=== PATIENT | female | born 1960 | race Caucasian/White ===

== ENCOUNTER 2018-10-17 11:45 | Inpatient (IN) | payer MEDICARE, MEDICAID ==
[2018-10-17] MEDS ORDERED: Acetaminophen 325 MG TAB PO PRN (15:40)
[2018-10-17] MEDS ORDERED: traMADol HCl 50 MG TAB PO PRN (15:41)
[2018-10-17] MEDS ORDERED: Ondansetron PF 4 MG/2 ML Vial SLOW IVP PRN (15:42)
[2018-10-17 15:52] VITALS: BMI 28.5
[2018-10-17] MEDS: Sodium Chloride 0.9% 1,000 ML IV SCH (16:04)
[2018-10-17] MEDS: HYDROcodone/Acetaminophen 5/325 mg Tablet PO PRN ×2 (16:08→21:43)
[2018-10-17 16:24] LABS: #Basophils 0.1 thou/uL (0.0-0.2); #Eosinphils 0.2 thou/uL (0.0-0.7); #Lymphocytes 1.3 thou/uL (1.20-3.40); #Monocytes 0.9 thou/uL (0.11-0.59); #Neutrophils 4.8 thou/uL (1.40-6.50); %Basophils 0.9 % (0.0-1.0); %Eosinophils 2.5 % (0.0-10.0); %Lymphocytes 18.4 % (21.0-51.0); %Monocytes 11.7 % (0.0-10.0); %Neutrophils 66.5 % (42.0-75.0); Hemoglobin 11.9 g/dL (12.0-16.0); Mean Corpuscular HGB CONC 32.7 g/dL (32.0-36.0); Mean Corpuscular Volume 79.4 fL (78.0-98.0); Mean Platelet Volume 8.6 fL (7.4-10.4); Platelet Count 180 thou/uL (130-400); RBC Distribution Width 14.9 % (11.5-14.5); Red Blood Cell (RBC) Count 4.57 mill/uL (4.20-5.40); White Blood Cell (WBC) Count 7.3 thou/uL (4.8-10.8)
[2018-10-17 16:30] LABS: INR-International Normal Ratio 1.1; Prothrombin Time 13.7 SEC (12.0-14.7)
[2018-10-17 16:41] LABS: Anion Gap 12 mmol/L (10-20); BUN (Urea Nitrogen) 17 mg/dL (9.8-20.1); Calc. Creatinine Clearance 67 mL/min (70-130); Calcium 9.2 mg/dL (7.8-10.44); Carbon Dioxide 22 mmol/L (22-29); Chloride 109 mmol/L (98-107); Estimated GFR-MDRD 58; Glucose 75 mg/dL (70-105); Potassium 4.1 mmol/L (3.5-5.1); Sodium 139 mmol/L (136-145)
--- NOTE | 2018-10-17 16:56 | CT ---
CT OF THE THORACIC SPINE WITHOUT CONTRAST: 10/17/18 INDICATION: Thoracic spinal cord tumor. COMPARISON: None. TECHNIQUE: Multiple CT images were obtained of the thoracic spine without IV or intrathecal contrast. FINDINGS: There is mild multilevel disc degenerative disease of the thoracic spine. No definite acute fracture or subluxation is evident. Within the right T10-T11 neural foramina there is a soft tissue density expanding the right neural fo ramina suspicious for a nerve sheath tumor. This is best seen on image 64 of series 2 and image 32 of the sagittal series. The soft tissue density lesion measures approximately 1.1 x 1.1 cm. No addition al focal lesion is evident. There is a small hiatal hernia. There is postsurgical change from the prior gastric bypass. There are calcified granuloma within both lungs. The visualized adrenal glands appear within normal limits. IMPRESSION: 1. 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 MR of the thoracic spine with a nd without contrast recommended for further evaluation. 2. Mild multilevel spondylosis of the thoracic spine. POS: TPC
--- NOTE | 2018-10-17 17:00 | CT ---
NONCONTRAST CT OF THE LUMBAR SPINE: 10/17/18 INDICATION: History of spinal mass at the T10 vertebral level. COMPARISON: None. FINDINGS: Within the visualized retroperitoneum, there is postsurgical change of a left nephrectomy and cholecy stectomy. There are scattered vascular calcifications along the abdominal aorta. There is multilevel disc degenerative facet osteoarthritic change. There is diffuse osteopenia. At L5-S1, there is no appreciable osseous central canal or neural foraminal narrowing. At L4-5, there is no appreciable osseous central canal or neural foraminal narrowing. At L3-4, there is no appreciable osseous central canal or neural foraminal narrowing. At L2-3, there is no appreciable osseous central canal or neural foraminal narrowing. At L1-2, there is no appreciable osseous central canal or neural foraminal narrowing. At T12-L1, there is no appreciable osseous central canal or neural foraminal narrowing. IMPRESSION: 1. Mild multilevel spondylosis of the lumbar spine. 2. No definite visible soft tissue mass is evident within the limitations of this noncontrast CT examination. If there remains further clinical concern for spinal pathology, further evaluation with MRI of the lumbar spine with and without contrast recommended. POS: TPC
[2018-10-17] MEDS: Dexamethasone 4 mg/ml Vial SLOW IVP SCH ×2 (17:01→23:07)
[2018-10-17] MEDS: Gabapentin 300 MG CAP PO SCH (19:56)
--- NOTE | 2018-10-17 19:57 | CON ---
DATE OF CONSULTATION: 10/17/2018 PRIMARY CARE PHYSICIAN: Dr. Anthony Lawrence at [facility]. REASON FOR CONSULTATION: Medical management. 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 Hospitalist Team was consulted for medical management. She denies any chest pain, shortness of breath, palpitations, lightheadedness, dizziness, or syncope. She denies any exertional shortness of breath prior to the onset of bilateral lower extremity sensory and motor deficits. She has a history of murmur over the last 7 to 8 years; however, she never had an echo in the past. She had a negative stress test in the last 3 to 4 years at [facility]. She denies any history of diabetes, CVA, hypertension, or congestive heart failure. PAST MEDICAL HISTORY: 1. Pericardiac murmur was noticed around 6 to 7 years ago. 2. Depression. 3. History of renal cell cancer, status post surgery at [facility]. 4. History of abnormal Pap smear. PAST SURGICAL HISTORY: 1. Cholecystectomy in 2009. 2. Gastric bypass in 2011. 3. Left renal cell cancer surgery in 2013, with subsequent nephrectomy in 2015. ALLERGIES: THE PATIENT DENIES ANY DRUG ALLERGIES. CURRENT HOME MEDICATIONS: 1. Tylenol No. 3 as needed. 2. Gabapentin 300 mg b.i.d. 3. Effexor 75 mg daily. SOCIAL HISTORY: The patient currently lives at home with her family. Prior to onset of bilateral lower extremity weakness, she was independent of activities of daily living. She denies any history of smoking, alcohol, or drug use. FAMILY HISTORY: Mother with congestive heart failure and diabetes. One brother with pancreatic cancer. REVIEW OF SYSTEMS: All other review of systems was reviewed and was found negative. PHYSICAL EXAMINATION: VITAL SIGNS: Temperature 98.3, pulse rate of 95, respirations of 18, blood pressure 144/89, O2 saturation 97% on room air. GENERAL: A 58-year-old female, in no apparent distress. HEENT: Head, atraumatic and normocephalic. Sclerae are anicteric. Moist mucous membranes. No oral lesion. NECK: Supple. No JVD appreciated. No carotid bruit. LUNGS: Clear to auscultation bilaterally. No wheezing, rales, or rhonchi. HEART: S1 and S2 present. Regular rate and rhythm. 2/6 systolic murmur over the aortic area as well as at the mitral area. No heaves or pulsation. ABDOMEN: Soft and nontender. Bowel sounds present. No rebound or guarding. EXTREMITIES: No edema or calf tenderness. NEUROLOGIC: Bilateral lower extremity sensory deficit from upper abdomen down. PSYCHIATRIC: Normal affect. The patient is alert, awake, and oriented x3. SKIN: Warm and dry. LYMPH NODES: No palpable lymph nodes in the neck. PERIPHERAL VASCULAR: Radial pulses palpable bilaterally. MUSCULOSKELETAL: No joint swelling or tenderness. LABORATORY FINDINGS: WBC 7.3 with hemoglobin 11.9, hematocrit 36.2, platelet of 180. PT, INR, and PTT in normal range. Chemistry showed sodium 139, potassium 4.1, chloride 109, bicarb 22, BUN 17, creatinine 0.98, glucose of 75. Thoracic spine and lumbar spine CT showed a mass at the T10-T11 neural foramina. EKG by my review showed sinus rhythm without significant ST-T wave changes. IMPRESSION: 1. T10-T11 mass with severe spinal stenosis. 2. Depression, mild, stable. 3. History of murmur. 4. Chronic anemia. 5. Chronic kidney disease, stage 3. 6. Chronic pain syndrome. 7. Neuropathy. PLAN: The patient is currently admitted on the surgical floor. She has been started on IV steroids. She denies any history of coronary artery disease; congestive heart failure; diabetes mellitus, type 2; hypertension; or stroke in the past. She had a stress test in the last 4 to 5 years, which was negative. She denies any history of complications from anesthesia. She has a long history of murmur, however, never had an echo in the past. Murmur is probably not consistent with severe valvular heart disease. She is probably optimal for surgical intervention. Thank you Dr. Mayo for this consultation. We will follow with you. Job ID: [id number]
[2018-10-17] MEDS: tiZANidine HCl 4 MG TAB PO PRN (21:43)
[2018-10-18] MEDS: Morphine 2 MG/ML SYRINGE SLOW IVP PRN ×4 (02:41→20:30)
[2018-10-18] MEDS: Dexamethasone 4 mg/ml Vial SLOW IVP SCH ×4 (05:53→23:30)
[2018-10-18] MEDS ORDERED: Thrombin 5000 UNITS/5 ML VIAL ONE (06:41)
[2018-10-18] MEDS ORDERED: Sodium Chloride 0.9% 10 ML ONE (06:41)
[2018-10-18] MEDS ORDERED: Midazolam HCl 2 mg/2 ml Vial ONE (06:45)
[2018-10-18] MEDS ORDERED: Fentanyl 100 MCG/2 ML VIAL ONE ×2 (06:45→12:31)
[2018-10-18] MEDS ORDERED: HYDROmorphone 2 MG/ML VIAL ONE (07:13)
[2018-10-18] MEDS ORDERED: Promethazine HCl 25 MG/ML VIAL SLOW IVP PRN (11:57)
[2018-10-18] MEDS ORDERED: Promethazine HCl 25 MG/ML VIAL IM PRN (11:57)
[2018-10-18] MEDS ORDERED: Ondansetron HCl/PF 4 MG/2 ML Vial IVP PRN (11:57)
[2018-10-18] MEDS ORDERED: Ondansetron PF 4 MG/2 ML Vial ONE (12:46)
[2018-10-18] MEDS ORDERED: PHENYLEPHRINE-NS 100 MCG/ML 10 ML SYRINGE ONE (12:46)
[2018-10-18] MEDS ORDERED: Succinylcholine Chloride 20 MG/ML 10 ml SYRINGE FS ONE (12:46)
[2018-10-18] MEDS ORDERED: Glycopyrrolate 0.2 MG/ML 5 ML SYRINGE ONE (12:46)
[2018-10-18] MEDS ORDERED: Labetalol HCl 100 MG/20 ML VIAL ONE (12:46)
[2018-10-18] MEDS ORDERED: Rocuronium Bromide 10 MG/ML (10ML VIAL) ONE (12:46)
[2018-10-18] MEDS ORDERED: PROPOFOL 200 MG/20 ML VIAL ONE (12:46)
[2018-10-18] MEDS ORDERED: Lidocaine 1% PF 5 ML VIAL ONE (12:46)
[2018-10-18] MEDS: Gabapentin 300 MG CAP PO SCH ×2 (13:29→20:30)
[2018-10-18] MEDS: Multivit, Therapeutic 1 TAB PO SCH (13:29)
[2018-10-18] MEDS: Pantoprazole 40 MG VIAL IVP SCH (13:30)
[2018-10-18] MEDS: CEFAZOLIN 2 GM in Premix Bag 1 BAG IVPB SCH ×2 (13:59→22:07)
[2018-10-18] MEDS: HYDROcodone/Acetaminophen 5/325 mg Tablet PO PRN ×2 (16:07→22:06)
--- NOTE | 2018-10-18 17:31 | EKG ---
Test Reason : Blood Pressure : / mmHG Vent. Rate : 074 BPM Atrial Rate : 074 BPM P-R Int : 156 ms QRS Dur : 090 ms QT Int : 390 ms P-R-T Axes : 051 061 047 degrees QTc Int : 432 ms Normal sinus rhythm Normal ECG Confirmed by FAUSTO CALIX ([id number]) on 10/18/2018 5:31:34 PM Referred By: LAZARA Confirmed By:FAUSTO CALIX
[2018-10-18] MEDS: Sodium Chloride 0.9% 1,000 ML IV SCH ×2 (17:33→17:37)
--- NOTE | 2018-10-18 17:56 | PDOC.HOSPP ---
- Subjective Encounter Date: 10/18/18 Encounter Time: 15:40 Subjective: Patient seen and examined for med mngt. Pain controlled. No CP/SOB or palpitations. No new complaints. No overnight events - Objective Vital Signs & Weight: Weight Weight 151 lb I&O: 10/17/18 10/18/18 10/19/18 06:59 06:59 06:59 Intake Total 575 Balance 575 Result Diagrams: 10/17/18 16:17 10/17/18 16:17 EKG Reviewed by me: Yes (SR) Hospitalist ROS - Review of Systems Respiratory: denies: cough, dry, shortness of breath, hemoptysis, SOB with excertion, pleuritic pain, sputum, wheezing, other Cardiovascular: denies: chest pain, palpitations, orthopnea, paroxysmal noc. dyspnea, edema, light headedness, other Gastrointestinal: denies: nausea, vomitting, abdominal pain, diarrhea, constipation, melena, hematochezia, other - Medication Medications: Active Medications Generic Name Dose Route Start Last Admin Trade Name Freq PRN Reason Stop Dose Admin Hydrocodone Bitart/Acetaminophen 1 tab 10/17/18 15:41 10/18/18 16:07 [place] 5/325 PO 1 tab Q6H PRN Administration Moderate Pain (4-6) Dexamethasone 4 mg 10/17/18 18:00 10/18/18 17:37 Decadron SLOW IVP 4 mg Q6HR GILDA Administration Gabapentin 300 mg 10/17/18 21:00 10/18/18 13:29 Neurontin PO Not Given BID GILDA Sodium Chloride 1,000 mls @ 50 mls/hr 10/17/18 15:45 10/18/18 17:37 Normal Saline 0.9% IV 1,000 mls .Q20H GILDA Administration Cefazolin Sodium/Dextrose 2 gm 50 mls @ 100 mls/hr 10/18/18 14:00 10/18/18 13 :59 / Device IVPB 10/20/18 06:29 50 mls Q8HR GILDA Administration Morphine Sulfate 2 mg 10/17/18 15:41 10/18/18 17:42 Morphine SLOW IVP 2 mg Q1H PRN Administration Severe Pain (7-10) Multivitamins 1 tab 10/18/18 09:00 10/18/18 13:29 Theragran PO Not Given DAILY GILDA Pantoprazole Sodium 40 mg 10/18/18 09:00 10/18/18 13:30 Protonix IVP Not Given DAILY [facility] Tizanidine HCl 4 mg 10/17/18 15:42 10/17/18 21:43 Zanaflex PO 4 mg Q8H PRN Administration Muscle Spasm Venlafaxine HCl 75 mg 10/18/18 09:00 10/18/18 17:33 Effexor PO Not Given DAILY GILDA - Exam General Appearance: NAD Neck: supple, no JVD Heart: RRR, no murmur, no gallops, no rubs Respiratory: CTAB, no wheezes, no rales, no ronchi Gastrointestinal: soft, non-tender, non-distended, normal bowel sounds Extremities: no edema Hosp A/P - Plan plan discussed w/ family, stinson catheter, incentive spirometry, DVT proph w/SCDs , GI proph IMPRESSION: 1. T10-T11 mass with severe spinal stenosis. 2. Depression, mild, stable. 3. History of murmur. 4. Chronic anemia. 5. Chronic kidney disease, stage 3. 6. Chronic pain syndrome. 7. Neuropathy. PLAN: Echo as outpt On IV Steroids with PPI Cont to monitor Cont Gabapentin and Effexor
[2018-10-18] MEDS: tiZANidine HCl 4 MG TAB PO PRN (22:06)
[2018-10-19] MEDS: HYDROcodone/Acetaminophen 5/325 mg Tablet PO PRN ×4 (03:59→22:43)
[2018-10-19] MEDS: Morphine 2 MG/ML SYRINGE SLOW IVP PRN ×5 (04:07→20:50)
[2018-10-19] MEDS: Dexamethasone 4 mg/ml Vial SLOW IVP SCH (05:57)
[2018-10-19] MEDS: CEFAZOLIN 2 GM in Premix Bag 1 BAG IVPB SCH ×3 (05:57→22:37)
[2018-10-19] MEDS: tiZANidine HCl 4 MG TAB PO PRN ×3 (06:02→22:43)
--- NOTE | 2018-10-19 08:01 | OP ---
DATE OF PROCEDURE: 10/18/2018 LOCATION: OR 11. WOUND CLASSIFICATION: Type 1 wound. 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 PROCEDURES PERFORMED: 1. T9, T10, top of T11 laminectomy, partial facetectomy, foraminotomy with facetectomy on the right T10-T11 segment, given extension of tumor out to neural foramen. 2. Opening of dura with intradural extramedullary tumor resection with resection from right T10 neural foramen. 3. Use of operative microscope for microdissection. DESCRIPTION OF PROCEDURE: After informed consent was obtained from the patient, the patient was brought to the OR. Proper patient, pause, and identification were carried out. She was placed under excellent general endotracheal anesthesia and positioned prone on the OR table. All appropriate points were padded. We identified the T9, T10, T11 segments and a linear heather was made dorsally in this region. This area was sterilely cleansed, prepared, and draped. Proper patient, pause, and identification were carried out. The wound was then opened with a combination of sharp, monopolar, and blunt dissection, and the T9, T10, T11 segments were exposed. Localization film confirmed our area of interest. We then performed a T9, T10, and top of T11 laminectomy with preservation of the left T9, T10, and T10-T11 facet complexes. We then did a right T10-T11 facetectomy to allow for exposure of the right T10 nerve root. This was skeletonized and exposed. We then brought the microscope in. The dura was opened in the midline and yellow, somewhat bloody, soft, but well-encapsulated mass was identified. I preserved the capsule and was able to mobilize this away from the spinal cord. Once this was done, I was able to resect the portion that was in the canal and tease out portions that had escaped into the right T10 foramen. This did appear to be connected to the T10 nerve root and the T10 nerve root had to be sacrificed. 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 Preliminary pathology was consistent with renal cell carcinoma, while highly unusual given the rarity of this, this is what our pathologist suspected based on preliminary smear. I then followed it into the neural foramen and tumor was resected. Hemostasis was maximized throughout. The wound was copiously irrigated. The cord was protected in its entirety. I then closed the dura with a running locking suture, and DuraSeal was then placed over this region with two Valsalva maneuvers, there was no evidence of CSF leak. Copious irrigation occurred throughout. The wound was then closed in anatomic layers following sprinkling of vancomycin powder. The patient was then emerged from anesthesia. Job ID: [id number]
[2018-10-19] MEDS: Multivit, Therapeutic 1 TAB PO SCH (09:24)
[2018-10-19] MEDS: Pantoprazole 40 MG VIAL IVP SCH (09:24)
[2018-10-19] MEDS: Gabapentin 300 MG CAP PO SCH ×2 (09:24→20:50)
--- NOTE | 2018-10-19 11:14 | PRG ---
DATE OF SERVICE: 10/19/2018 Ms. Perez is postoperative day 1 from a T10 intradural extramedullary tumor resection. She is moving her right lower extremity with mild motor deficit throughout the right leg, but is able to bend her knee up at the hip and wiggle her toes. She has a very minimal deficit in the left lower extremity. Overall, I am very pleased with how she is doing. We have set her up. She has no headache. We are awaiting the final pathology. Interestingly, our pathologist suspected it could be renal cell carcinoma, although this would be highly unusual to have an intradural extramedullary met, although unheard of. Nevertheless, we are doing a Decadron taper. She will need inpatient rehab. She may mobilize as tolerated. Her wound has been dry. Job ID: [id number]
[2018-10-19] MEDS: Dexamethasone 4 MG TAB PO SCH ×3 (11:49→23:44)
--- NOTE | 2018-10-19 14:38 | PDOC.HOSPP ---
- Subjective Encounter Date: 10/19/18 Encounter Time: 11:00 Subjective: Patient seen and examined for med mngt. No fever/chills or new focal deficits. Pain controlled. No new complaints. No overnight events - Objective Vital Signs & Weight: Vital Signs (12 hours) Temp Pulse Resp BP Pulse Ox 10/19/18 12:45 97.5 F L 88 18 119/79 95 10/19/18 07:43 98.2 F 66 18 105/71 97 10/19/18 04:53 98.5 F 67 16 98/62 98 Weight Weight 151 lb I&O: 10/18/18 10/19/18 10/20/18 06:59 06:59 06:59 Intake Total 575 360 Balance 575 360 Result Diagrams: 10/17/18 16:17 10/17/18 16:17 Hospitalist ROS - Review of Systems Cardiovascular: denies: chest pain, palpitations, orthopnea, paroxysmal noc. dyspnea, edema, light headedness, other Gastrointestinal: denies: nausea, vomitting, abdominal pain, diarrhea, constipation, melena, hematochezia, other - Medication Medications: Active Medications Generic Name Dose Route Start Last Admin Trade Name Freq PRN Reason Stop Dose Admin Hydrocodone Bitart/Acetaminophen 1 tab 10/17/18 15:41 10/19/18 09:32 [place] 5/325 PO 1 tab Q6H PRN Administration Moderate Pain (4-6) Dexamethasone 4 mg 10/19/18 12:00 10/19/18 11:49 Decadron PO 10/21/18 06:01 4 mg Q6HR GILDA Administration Gabapentin 300 mg 10/17/18 21:00 10/19/18 09:24 Neurontin PO 300 mg BID GILDA Administration Sodium Chloride 1,000 mls @ 50 mls/hr 10/17/18 15:45 10/18/18 17:37 Normal Saline 0.9% IV 1,000 mls .Q20H GILDA Administration Cefazolin Sodium/Dextrose 2 gm 50 mls @ 100 mls/hr 10/18/18 14:00 10/19/18 14 :15 / Device IVPB 10/20/18 06:29 50 mls Q8HR GILDA Administration Morphine Sulfate 2 mg 10/17/18 15:41 10/19/18 14:18 Morphine SLOW IVP 2 mg Q1H PRN Administration Severe Pain (7-10) Multivitamins 1 tab 10/18/18 09:00 10/19/18 09:24 Theragran PO 1 tab DAILY GILDA Administration Pantoprazole Sodium 40 mg 10/18/18 09:00 10/19/18 09:24 Protonix IVP 40 mg DAILY GILDA Administration Tizanidine HCl 4 mg 10/17/18 15:42 10/19/18 14:19 Zanaflex PO 4 mg Q8H PRN Administration Muscle Spasm Venlafaxine HCl 75 mg 10/18/18 09:00 10/19/18 09:24 Effexor PO 75 mg DAILY GILDA Administration - Exam General Appearance: NAD Heart: RRR, no gallops, no rubs Respiratory: CTAB, no wheezes, no rales, no ronchi Gastrointestinal: soft, non-tender, non-distended, normal bowel sounds Extremities: no edema Hosp A/P - Plan IMPRESSION: 1. T10-T11 mass with severe spinal stenosis. Biopsy pending 2. Depression, mild, stable. 3. History of murmur. Echo as outpt 4. Chronic anemia. 5. Chronic kidney disease, stage 3. 6. Chronic pain syndrome. 7. Neuropathy of unclear etiology. PLAN: On IV Steroids with PPI Cont Gabapentin and Effexor Will follow PRN AM labs
[2018-10-19] MEDS ORDERED: Polyethylene Glycol 3350 17 GM Packet PO PRN (15:44)
[2018-10-19] MEDS: Sodium Chloride 0.9% 1,000 ML IV SCH (17:12)
[2018-10-19] MEDS: Docusate 100 MG CAP PO SCH (20:50)
[2018-10-20] MEDS: Morphine 2 MG/ML SYRINGE SLOW IVP PRN ×2 (03:49→20:04)
[2018-10-20] MEDS: HYDROcodone/Acetaminophen 5/325 mg Tablet PO PRN ×4 (04:58→21:40)
[2018-10-20] MEDS: Sodium Chloride 0.9% 1,000 ML IV SCH ×2 (05:03→14:22)
[2018-10-20] MEDS: Dexamethasone 4 MG TAB PO SCH ×4 (05:58→23:13)
[2018-10-20] MEDS: CEFAZOLIN 2 GM in Premix Bag 1 BAG IVPB SCH (05:58)
[2018-10-20] MEDS: tiZANidine HCl 4 MG TAB PO PRN ×3 (06:49→18:22)
[2018-10-20 07:03] LABS: Anion Gap 10 mmol/L (10-20); BUN (Urea Nitrogen) 11 mg/dL (9.8-20.1); Calc. Creatinine Clearance 70 mL/min (70-130); Calcium 8.2 mg/dL (7.8-10.44); Carbon Dioxide 24 mmol/L (22-29); Chloride 106 mmol/L (98-107); Estimated GFR-MDRD 61; Glucose 143 mg/dL (70-105); Potassium 4.2 mmol/L (3.5-5.1); Sodium 136 mmol/L (136-145)
--- NOTE | 2018-10-20 07:45 | PRG ---
DATE OF SERVICE: 10/20/2018 I saw Marci Perez in her hospital room this morning. She is now 2 days out from removal of an intradural extramedullary thoracic spine lesion. Her weakness and sensory alteration in her lower extremities continues to improve daily. She is very pleased with her recovery. She still needs some assistance with ambulation and could benefit from inpatient rehabilitation. We will aim for discharge to rehab on Monday. Job ID: [id number]
[2018-10-20] MEDS: Multivit, Therapeutic 1 TAB PO SCH (09:33)
[2018-10-20] MEDS: Gabapentin 300 MG CAP PO SCH ×2 (09:33→20:04)
[2018-10-20] MEDS: Pantoprazole 40 MG VIAL IVP SCH (09:34)
[2018-10-20] MEDS: Docusate 100 MG CAP PO SCH ×2 (09:34→20:04)
--- NOTE | 2018-10-20 23:20 | PDOC.HOSPP ---
- Subjective Encounter Date: 10/20/18 Encounter Time: 14:45 Subjective: Patient seen and examined for med mngt. No CP or SOB. Pain on movement. No other complaints. No overnight events - Objective Vital Signs & Weight: Vital Signs (12 hours) Temp Pulse Resp BP Pulse Ox 10/20/18 20:00 98.2 F 66 16 107/70 95 10/20/18 15:24 98.4 F 69 16 105/66 96 10/20/18 11:37 98.1 F 70 14 118/75 95 Weight Weight 151 lb I&O: 10/19/18 10/20/18 10/21/18 06:59 06:59 06:59 Intake Total 3100 1660 Output Total 2750 1950 Balance 350 -290 Result Diagrams: 10/17/18 16:17 10/20/18 06:30 Hospitalist ROS - Review of Systems Respiratory: denies: cough, dry, shortness of breath, hemoptysis, SOB with excertion, pleuritic pain, sputum, wheezing, other Cardiovascular: denies: chest pain, palpitations, orthopnea, paroxysmal noc. dyspnea, edema, light headedness, other - Medication Medications: Active Medications Generic Name Dose Route Start Last Admin Trade Name Freq PRN Reason Stop Dose Admin Hydrocodone Bitart/Acetaminophen 1 tab 10/20/18 08:06 10/20/18 21:40 [place] 5/325 PO 1 tab Q4H PRN Administration Moderate Pain (4-6) Dexamethasone 4 mg 10/19/18 12:00 10/20/18 23:13 Decadron PO 10/21/18 06:01 4 mg Q6HR GILDA Administration Docusate Sodium 100 mg 10/19/18 21:00 10/20/18 20:04 Colace PO 100 mg BID GILDA Administration Gabapentin 300 mg 10/17/18 21:00 10/20/18 20:04 Neurontin PO 300 mg BID GILDA Administration Sodium Chloride 1,000 mls @ 50 mls/hr 10/17/18 15:45 10/20/18 14:22 Normal Saline 0.9% IV 1,000 mls .Q20H GILDA Administration Morphine Sulfate 2 mg 10/17/18 15:41 10/20/18 20:04 Morphine SLOW IVP 2 mg Q1H PRN Administration Severe Pain (7-10) Multivitamins 1 tab 10/18/18 09:00 10/20/18 09:33 Theragran PO 1 tab DAILY GILDA Administration Pantoprazole Sodium 40 mg 10/18/18 09:00 10/20/18 09:34 Protonix IVP 40 mg DAILY GILDA Administration Sodium Chloride 10 ml 10/20/18 09:00 10/20/18 20:07 Flush - Normal Saline IVF Not Given Q12HR GILDA Tizanidine HCl 4 mg 10/20/18 08:06 10/20/18 18:22 Zanaflex PO 4 mg Q6H PRN Administration Muscle Spasm Venlafaxine HCl 75 mg 10/18/18 09:00 10/20/18 09:33 Effexor PO 75 mg DAILY GILDA Administration - Exam General Appearance: NAD Neck: supple, no JVD Heart: RRR, no gallops Respiratory: CTAB, no wheezes, no rales Gastrointestinal: soft, non-tender, non-distended, normal bowel sounds Extremities: no edema Hosp A/P - Plan plan discussed w/ family IMPRESSION: 1. T10-T11 mass with severe spinal stenosis. 2. Depression, mild, stable. 3. History of murmur. Echo as outpt 4. Chronic anemia. 5. Chronic kidney disease, stage 3. 6. Chronic pain syndrome. 7. Neuropathy of unclear etiology. PLAN: On IV Steroids with PPI Cont other meds as above Biopsy - ?Metastatic renal Ca
[2018-10-21] MEDS: HYDROcodone/Acetaminophen 5/325 mg Tablet PO PRN ×3 (04:05→17:37)
[2018-10-21] MEDS: Sodium Chloride 0.9% 1,000 ML IV SCH (04:06)
[2018-10-21] MEDS: tiZANidine HCl 4 MG TAB PO PRN ×3 (04:06→20:48)
[2018-10-21] MEDS: Dexamethasone 4 MG TAB PO SCH (05:10)
--- NOTE | 2018-10-21 08:44 | PRG ---
DATE OF SERVICE: 10/21/2018 I saw Ms. Perez in her hospital room this morning. She is doing relatively well. She could not make a walk around the nurses station, but she could get to the bathroom yesterday with some assistance. She made it to the paiz, but that was the extent of her walking. She feels her legs are getting stronger and it is a sensory alteration in the lower extremities are improving. Overnight, her vitals have been stable and her neurological examination is as well. The disposition for her will be to inpatient rehabilitation. She is told yesterday by Case Management that her insurance may require her to stay through Monday before the transfer can happen. Job ID: [id number]
[2018-10-21] MEDS: Multivit, Therapeutic 1 TAB PO SCH (08:58)
[2018-10-21] MEDS: Gabapentin 300 MG CAP PO SCH ×2 (08:58→20:34)
[2018-10-21] MEDS: Pantoprazole 40 MG VIAL IVP SCH (08:59)
[2018-10-21] MEDS: Docusate 100 MG CAP PO SCH (09:04)
[2018-10-21] MEDS: Dexamethasone 1 MG TAB PO SCH ×2 (12:19→17:37)
[2018-10-21] MEDS: Morphine 2 MG/ML SYRINGE SLOW IVP PRN ×2 (16:39→20:40)
--- NOTE | 2018-10-21 17:38 | PDOC.HOSPP ---
- Subjective Encounter Date: 10/21/18 Encounter Time: 15:30 Subjective: Patient seen and examined for med mngt. Pain controlled. No new complaints. No overnight events - Objective Vital Signs & Weight: Vital Signs (12 hours) Temp Pulse Resp BP Pulse Ox 10/21/18 15:01 98 F 62 16 110/72 95 10/21/18 12:15 98.1 F 70 16 124/84 96 10/21/18 08:09 98.6 F 75 16 123/79 96 Weight Weight 151 lb I&O: 10/20/18 10/21/18 10/22/18 06:59 06:59 06:59 Intake Total 3100 1660 2060 Output Total 2750 1950 1900 Balance 350 -290 160 Result Diagrams: 10/17/18 16:17 10/20/18 06:30 Hospitalist ROS - Review of Systems Respiratory: denies: cough, dry, shortness of breath, hemoptysis, SOB with excertion, pleuritic pain, sputum, wheezing, other Cardiovascular: denies: chest pain, palpitations, orthopnea, paroxysmal noc. dyspnea, edema, light headedness, other Gastrointestinal: denies: nausea, vomitting, abdominal pain, diarrhea, constipation, melena, hematochezia, other - Medication Medications: Active Medications Generic Name Dose Route Start Last Admin Trade Name Freq PRN Reason Stop Dose Admin Hydrocodone Bitart/Acetaminophen 1 tab 10/20/18 08:06 10/21/18 08:56 [place] 5/325 PO 1 tab Q4H PRN Administration Moderate Pain (4-6) Dexamethasone 3 mg 10/21/18 12:00 10/21/18 12:19 Decadron PO 10/23/18 06:01 3 mg Q6HR GILDA Administration Docusate Sodium 100 mg 10/19/18 21:00 10/21/18 09:04 Colace PO Not Given BID GILDA Gabapentin 300 mg 10/17/18 21:00 10/21/18 08:58 Neurontin PO 300 mg BID GILDA Administration Sodium Chloride 1,000 mls @ 50 mls/hr 10/17/18 15:45 10/21/18 04:06 Normal Saline 0.9% IV 1,000 mls .Q20H GILDA Administration Morphine Sulfate 2 mg 10/17/18 15:41 10/21/18 16:39 Morphine SLOW IVP 2 mg Q1H PRN Administration Severe Pain (7-10) Multivitamins 1 tab 10/18/18 09:00 10/21/18 08:58 Theragran PO 1 tab DAILY GILDA Administration Pantoprazole Sodium 40 mg 10/18/18 09:00 10/21/18 08:59 Protonix IVP 40 mg DAILY GILDA Administration Sodium Chloride 10 ml 10/20/18 09:00 10/21/18 09:04 Flush - Normal Saline IVF Not Given Q12HR GILDA Tizanidine HCl 4 mg 10/20/18 08:06 10/21/18 12:23 Zanaflex PO 4 mg Q6H PRN Administration Muscle Spasm Venlafaxine HCl 75 mg 10/18/18 09:00 10/21/18 08:58 Effexor PO 75 mg DAILY GILDA Administration - Exam General Appearance: NAD Neurological: no new deficit Psychiatric: normal affect, A&O x 3 Hosp A/P - Plan IMPRESSION: 1. T10-T11 mass with severe spinal stenosis. 2. Depression, mild, stable. 3. History of murmur. Echo as outpt 4. Chronic anemia. 5. Chronic kidney disease, stage 3. 6. Chronic pain syndrome. 7. Neuropathy of unclear etiology. PLAN: On IV Steroids Cont PPI DC IVF DC Oneil in AM Cont other meds as above Biopsy - ?Metastatic renal Ca
[2018-10-22] MEDS: Dexamethasone 1 MG TAB PO SCH ×4 (00:16→17:58)
[2018-10-22] MEDS: HYDROcodone/Acetaminophen 5/325 mg Tablet PO PRN ×6 (00:20→22:03)
[2018-10-22] MEDS: Multivit, Therapeutic 1 TAB PO SCH (07:49)
[2018-10-22] MEDS: Docusate 100 MG CAP PO SCH (07:49)
[2018-10-22] MEDS: tiZANidine HCl 4 MG TAB PO PRN ×3 (07:49→22:03)
[2018-10-22] MEDS: Gabapentin 300 MG CAP PO SCH ×2 (07:50→20:02)
--- NOTE | 2018-10-22 10:09 | PRG ---
DATE OF SERVICE: 10/22/2018 This is Deniz Dueñas PA-C dictating a report for Dallin Mayo MD. This is postoperative recheck. Ms. 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 Apparently, pathology is consistent with metastatic renal cell carcinoma. Therefore, some additional testing will need to be completed to ensure there are no other mets. We will order a brain MRI with and without contrast, cervical spine MRI with and without contrast, and chest, abdomen, and pelvis CT scan. We will follow up on these studies, but otherwise the patient feels as though she is doing well. She has been up walking. She states she feels slightly unsteady on her feet, but this is unchanged compared to preoperative period. She has had electric-like sensations into the bilateral lower extremities. They are not especially painful, but they are bothersome to her. She also has foul odor from her Oneil according to the patient. We will remove it and see how she does with voiding. We may likely get UA with culture if needed. Main thing now is following up on her new studies plus disposition, and we will speak with case management. In regard to her strength, she has mild weakness into the right lower extremity and multiple myotomes, but in all truth, I feel as though it is improved compared to her immediate postoperative exam. She has trace weakness through the left lower extremity. She has decreased sensation around the belly button and below, which she states is no different than what it was before surgery and in fact she feels as though maybe the right lower extremity paresthesias and sensation are improving. The patient denies any headache. Frankly, I think she is doing very well, but again we will follow up on her studies and also placement into rehab and she will continue to work with therapies, walking with a walker. Please call with any changes in the patient's neurologic status. Job ID: [id number]
[2018-10-22] MEDS ORDERED: ISOVUE-370 76%-LOCM 1 ML ONE (10:48)
[2018-10-22] MEDS ORDERED: Gadobenate Dimeglumine 529 MG/1 ML (20ML VIAL) ONE (10:54)
--- NOTE | 2018-10-22 11:59 | MRI ---
MRI CERVICAL SPINE WITH AND WITHOUT CONTRAST: HISTORY: Osseous metastases. Primary renal cell cancer. Evaluate for cervical spinal metastases. TECHNIQUE: MRI cervical spine is performed with and without intravenous gadolinium administration. Multi sequent ial, multiplanar imaging is performed. FINDINGS: Appropriate T1 marrow signal intensity of the cervical vertebra. Cervical spine vertebral body height is maintained. There is no fracture. No significant STIR hyperintensity to suggest vertebral body edema or ligamentous injury. Visualized brain parenchyma, cervicomedullary junction, cervical cord and the upper thoracic cord hav e a normal size and signal. Postcontrast images do not demonstrate any abnormal enhancement with regards to the vertebral bodies. No abnormal enhancement with regards to the spinal cord. Visualized soft tissue neck structures are grossly unremarkable. C2-C3: No significant central canal stenosis or significant neural foraminal narrowing. C3-C4: No significant central canal stenosis or significant neural foraminal narrowing. C4-C5: Minimal broad-based disc-osteophyte complex. No significant central canal stenosis or signific ant neural foraminal narrowing. C5-C6: Broad-based disc-osteophyte complex with resultant mild central canal stenosis. Mild right and [id number] left neural foraminal narrowing due to uncovertebral hypertrophy.. C6-C7: Broad-based disc-osteophyte complex minimally flattens the ventral thecal sac. No significant central canal stenosis. Right neural foramen is patent. Mild left neural foraminal narrowing due to uncovertebral hypertrophy. C7-T1: No significant central canal stenosis or significant neural foraminal narrowing. IMPRESSION: 1. No MR evidence of osseous metastases. 2. Appropriate signal intensity of the visualized brain parenchyma and spinal cord. 3. No significant central canal stenosis or significant neural foraminal narrowing. Degenerative dise ase at C4-C5, C5-C6 and C6-C7 as described above. Transcribed Date/Time: 10/22/2018 1:47 PM
--- NOTE | 2018-10-22 12:00 | MRI ---
Brain MRI with and without contrast: 10/22/2018 HISTORY: Renal cell carcinoma, tumor removal at T10-11 TECHNIQUE: Multiplanar multisequence MR imaging of the brain is obtained with and without contrast FINDINGS: The diffusion weighted imaging demonstrates no evidence for acute infarction. The axial gra dient echo imaging demonstrates no evidence for intracranial hemorrhage. There is a focal area of polypoid mucosal thickening within the maxillary sinus on the right. Arterial flow voids at the axial level of the skull base appear grossly unremarkable on the T2-weight ed imaging. Two subcentimeter round foci of increased T2/FLAIR signal noted within the posterior medial aspect of the right cerebellar hemisphere suggesting areas of remote ischemia. There is no midline shift or mass effect. No ventricular enlargement. Postcontrast imaging demonstrat es no abnormal enhancement within the brain parenchyma. IMPRESSION: No MR evidence of intracranial metastatic disease.
--- NOTE | 2018-10-22 14:57 | CT ---
CT OF THE CHEST AND ABDOMEN AND PELVIS WITH IV CONTRAST: Date: 10/22/18 INDICATION: History of metastatic renal cancer. COMPARISON: CT thoracic spine with contrast dated 10/17/18. FINDINGS: CHEST: There are small bilateral pleural effusions and bibasilar atelectasis. There is a calcified granuloma in the right upper lobe. No suspicious pulmonary nodule is evident. No enlarged lymph node is evident within the mediastinum, hilar, or axillary regions. There are coronary artery thoracic aortic calcifications. ABDOMEN AND PELVIS: There is a small hiatal hernia. There is postsurgical change of a gastric bypass, cholecystectomy, an d left nephrectomy. There is no suspicious soft tissue nodularity seen within the left renal bed. Lef t adrenal gland is not well seen and is likely surgically absent. Right kidney is normal appearing. P ancreas and spleen appear within normal limits. No pathologically enlarged lymph nodes evident within the abdomen. There are moderate calcifications involving the abdominopelvic vasculature. There is a moderate amount of retained stool within the colon. Small bowel is of normal caliber. No free air or free fluid is demonstrated. There is postsurgical change of laminectomies at the T10 and T9 vertebral levels. There is gas seen w ithin the operative bed and in the epidural space. The previously seen soft tissue mass within the ri ght T10 and T11 neural foramina is not definitely seen. This is likely indicative of interval resecti on. No suspicious osteolytic or osteoblastic lesion is demonstrated. There is mild thoracolumbar scol iosis. There is diffuse osteopenia. IMPRESSION: 1. Interval postoperative change consistent with removal of the soft tissue mass previously demonstr ated within the right T10-T11 neural foramina. There is subcutaneous gas seen within the laminectomy sites at T9 and T10. 2. Small bilateral pleural effusions and bibasilar atelectasis. 3. No overt evidence to suggest metastatic disease within the chest, abdomen, or pelvis. 4. Postoperative change of gastric bypass, cholecystectomy, left adrenalectomy, left nephrectomy. POS: OFF
--- NOTE | 2018-10-22 19:32 | PDOC.HOSPP ---
- Subjective Encounter Date: 10/22/18 Encounter Time: 11:00 Subjective: Patient seen and examined for med mngt. Ambulating. Thad cervantes today. No new complaints. No overnight events - Objective Vital Signs & Weight: Vital Signs (12 hours) Temp Pulse Resp BP BP Pulse Ox 10/22/18 17:05 113/78 10/22/18 15:51 97.1 F L 74 18 99/67 95 10/22/18 12:12 98.4 F 68 18 135/88 96 10/22/18 08:02 98.4 F 55 L 15 125/84 94 L Weight Weight 151 lb I&O: 10/21/18 10/22/18 10/23/18 06:59 06:59 06:59 Intake Total 1660 3631 1920 Output Total 6316 7810 150 Balance -290 -1019 1770 Result Diagrams: 10/17/18 16:17 10/20/18 06:30 Hospitalist ROS - Review of Systems Respiratory: denies: cough, dry, shortness of breath, hemoptysis, SOB with excertion, pleuritic pain, sputum, wheezing, other Cardiovascular: denies: chest pain, palpitations, orthopnea, paroxysmal noc. dyspnea, edema, light headedness, other - Medication Medications: Active Medications Generic Name Dose Route Start Last Admin Trade Name Freq PRN Reason Stop Dose Admin Hydrocodone Bitart/Acetaminophen 1 tab 10/20/18 08:06 10/22/18 17:59 Osgood 5/325 PO 1 tab Q4H PRN Administration Moderate Pain (4-6) Dexamethasone 3 mg 10/21/18 12:00 10/22/18 17:58 Decadron PO 10/23/18 06:01 3 mg Q6HR GILDA Administration Docusate Sodium 100 mg 10/22/18 09:00 10/22/18 07:49 Colace PO Not Given DAILY GILDA Gabapentin 300 mg 10/17/18 21:00 10/22/18 07:50 Neurontin PO 300 mg BID GILDA Administration Morphine Sulfate 2 mg 10/17/18 15:41 10/21/18 20:40 Morphine SLOW IVP 2 mg Q1H PRN Administration Severe Pain (7-10) Multivitamins 1 tab 10/18/18 09:00 10/22/18 07:49 Theragran PO 1 tab DAILY GILDA Administration Pantoprazole Sodium 40 mg 10/22/18 09:00 10/22/18 07:50 Protonix PO 40 mg DAILY GILDA Administration Sodium Chloride 10 ml 10/20/18 09:00 10/22/18 07:50 Flush - Normal Saline IVF 10 ml Q12HR GILDA Administration Tizanidine HCl 4 mg 10/20/18 08:06 10/22/18 15:01 Zanaflex PO 4 mg Q6H PRN Administration Muscle Spasm Venlafaxine HCl 75 mg 10/18/18 09:00 10/22/18 07:50 Effexor PO 75 mg DAILY GILDA Administration - Exam General Appearance: NAD Heart: RRR, no gallops Respiratory: CTAB, no rales Gastrointestinal: soft, non-tender, non-distended, normal bowel sounds Extremities: no edema Hosp A/P - Plan IMPRESSION: 1. T10-T11 mass with severe spinal stenosis. Biopsy - Metastatic renal Ca 2. Depression, mild, stable. 3. History of murmur. Echo as outpt 4. Chronic anemia. 5. Chronic kidney disease, stage 3. 6. Chronic pain syndrome. 7. Neuropathy of unclear etiology. PLAN: On Steroids Cont PPI Cont other meds as above Will follow PRN
[2018-10-22] MEDS: Morphine 2 MG/ML SYRINGE SLOW IVP PRN (20:02)
[2018-10-23] MEDS: Dexamethasone 1 MG TAB PO SCH ×5 (00:04→23:12)
[2018-10-23] MEDS: tiZANidine HCl 4 MG TAB PO PRN ×3 (05:24→17:43)
[2018-10-23] MEDS: HYDROcodone/Acetaminophen 5/325 mg Tablet PO PRN ×5 (05:24→23:12)
[2018-10-23] MEDS: Gabapentin 300 MG CAP PO SCH ×2 (08:35→21:25)
[2018-10-23] MEDS: Docusate 100 MG CAP PO SCH (08:35)
[2018-10-23] MEDS: Multivit, Therapeutic 1 TAB PO SCH (08:35)
--- NOTE | 2018-10-23 13:53 | PRG ---
DATE OF SERVICE: 10/23/2018 This is Deniz Dueñas PA-C dictating a report for Dallin Mayo MD. This is a postoperative recheck. Ms. Perez is postoperative day #6, having undergone thoracic laminectomy with intradural spinal cord tumor resection. Given that the pathology was consistent with metastatic renal cell carcinoma, we ordered MRI of the brain and cervical spine MRI with and without contrast as well as a chest, abdomen, and pelvis CT scan, they are all negative for any type of metastatic disease. Overall, the patient is doing very well today. She is continuing to have decreased sensation below the umbilicus, but states that this is no worse than what it was before surgery, in fact sometimes it is improved. She feels improved sensation, especially into the bilateral toes and has been walking. Her Oneil was discontinued yesterday and she has been voiding well without the continued pressure-like feeling into her abdomen. The main issue now is disposition to inpatient rehab. We are waiting on insurance approval. Today, I feel as though improved strength in the legs, especially into the right leg and honestly cannot detect any type of neurologic deficit at this time other than some decreased sensation into the right leg. The patient is optimistic that she will continue to recover well. She denies any headache, and her thoracic incision dressing is dry. We will await inpatient rehab approval. Please call with any changes in the patient's neurologic status. Job ID: [id number]
[2018-10-23] MEDS ORDERED: Melatonin 3 MG TAB PO PRN (20:52)
--- NOTE | 2018-10-23 21:55 | PDOC.HOSPP ---
- Subjective Encounter Date: 10/23/18 Encounter Time: 12:30 Subjective: Patient seen and examined for med mngt. Ambulated earlier. Back pain - on and off. No new complaints. No overnight events - Objective Vital Signs & Weight: Vital Signs (12 hours) Temp Pulse Resp BP Pulse Ox 10/23/18 20:00 98.5 F 64 16 117/72 97 10/23/18 15:19 98.2 F 68 16 132/85 96 10/23/18 11:58 98.2 F 72 18 115/72 95 Weight Weight 151 lb I&O: 10/22/18 10/23/18 10/24/18 06:59 06:59 06:59 Intake Total 3631 2750 Output Total 4650 150 Balance -1019 2600 Result Diagrams: 10/17/18 16:17 10/20/18 06:30 Hospitalist ROS - Review of Systems Respiratory: denies: cough, dry, shortness of breath, hemoptysis, SOB with excertion, pleuritic pain, sputum, wheezing, other Cardiovascular: denies: chest pain, palpitations, orthopnea, paroxysmal noc. dyspnea, edema, light headedness, other - Medication Medications: Active Medications Generic Name Dose Route Start Last Admin Trade Name Freq PRN Reason Stop Dose Admin Acetaminophen 650 mg 10/17/18 15:40 10/23/18 12:40 Tylenol PO 650 mg Q6H PRN Administration Headache/Fever or Pain Hydrocodone Bitart/Acetaminophen 1 tab 10/20/18 08:06 10/23/18 14:45 Sawyer 5/325 PO 1 tab Q4H PRN Administration Moderate Pain (4-6) Hydrocodone Bitart/Acetaminophen 2 tab 10/23/18 15:25 10/23/18 18:47 Sawyer 5/325 PO 2 tab Q4H PRN Administration Pain (7-10) Dexamethasone 2 mg 10/23/18 12:00 10/23/18 17:43 Decadron PO 10/25/18 06:01 2 mg Q6HR GILDA Administration Docusate Sodium 100 mg 10/22/18 09:00 10/23/18 08:35 Colace PO Not Given DAILY GILDA Gabapentin 300 mg 10/17/18 21:00 10/23/18 21:25 Neurontin PO 300 mg BID GILDA Administration Morphine Sulfate 2 mg 10/17/18 15:41 10/22/18 20:02 Morphine SLOW IVP 2 mg Q1H PRN Administration Severe Pain (7-10) Multivitamins 1 tab 10/18/18 09:00 10/23/18 08:35 Theragran PO 1 tab DAILY GILDA Administration Pantoprazole Sodium 40 mg 10/22/18 09:00 10/23/18 08:35 Protonix PO 40 mg DAILY GILDA Administration Sodium Chloride 10 ml 10/20/18 09:00 10/23/18 21:25 Flush - Normal Saline IVF 10 ml Q12HR GILDA Administration Tizanidine HCl 4 mg 10/20/18 08:06 10/23/18 17:43 Zanaflex PO 4 mg Q6H PRN Administration Muscle Spasm Venlafaxine HCl 75 mg 10/18/18 09:00 10/23/18 08:35 Effexor PO 75 mg DAILY GILDA Administration - Exam General Appearance: NAD Extremities: no edema Neurological: no new deficit Psychiatric: normal affect, A&O x 3 Hosp A/P - Plan IMPRESSION: 1. T10-T11 mass with severe spinal stenosis. Biopsy - Metastatic renal Ca 2. Depression, mild, stable. 3. History of murmur. Echo as outpt 4. Chronic anemia. 5. Chronic kidney disease, stage 3. 6. Chronic pain syndrome. 7. Neuropathy of unclear etiology. PLAN: On Steroids/PPI Cont other meds as above Await Placement
[2018-10-24] MEDS: HYDROcodone/Acetaminophen 5/325 mg Tablet PO PRN ×4 (03:42→18:09)
[2018-10-24] MEDS: Dexamethasone 1 MG TAB PO SCH ×2 (06:27→12:26)
[2018-10-24] MEDS: Gabapentin 300 MG CAP PO SCH (08:12)
[2018-10-24] MEDS: Multivit, Therapeutic 1 TAB PO SCH (08:12)
[2018-10-24] MEDS: Docusate 100 MG CAP PO SCH (08:13)
[2018-10-24 15:54] VITALS: BP 111/73; TEMP 98.5
--- NOTE | 2018-10-25 03:54 | DIS ---
DATE OF ADMISSION: 10/17/2018 DATE OF DISCHARGE: 10/24/2018 DISCHARGE DIAGNOSES: 1. Intradural spinal tumor, pathology consistent with metastatic renal carcinoma. 2. Cardiac murmur. 3. Depression. 4. History of nephrectomy due to renal cell carcinoma in 2013. 5. Chronic pain. HOSPITAL COURSE: Ms. Perez was a direct admit from our outpatient neurosurgical office secondarily to bilateral lower extremity weakness and decreased sensation into the legs. Her thoracic MRI showed an intradural thoracic tumor and on 10/18/2018, the patient was taken to the OR to undergo a T9-T11 laminectomies with facetectomy on the right at T10-11 for intradural extramedullary tumor resection. The patient's surgery was without complication and the patient required several overnight stays in order to fully heal postoperatively. She did require adequate pain control as well as working with therapies to improve her mobility. At this time of discharge, the patient was doing very well in regard to bilateral lower extremity strength and in fact had significant improvement in her right lower extremity weakness. She also had improvement in bilateral lower extremity paresthesias as well as into the abdomen. She did have some pressure into the abdomen and a postvoid residual that was done, showed only 90 mL of urine as she voided 650, essentially ruling out urinary retention. The final pathology of her spinal cord tumor was consistent with metastatic renal carcinoma. At the time of discharge, the patient was ambulating well, tolerating a regular diet and her back pain was controlled with oral medications. Appropriate outpatient followup was provided and appropriate patient education. I should again note that the patient was requiring a walker for gait stability, although had been walking more than 500 feet at the time of discharge. She remained with trace weakness into the right lower extremity, but had good strength in the left lower extremity with some decreased sensation to light touch throughout the bilateral lower extremities. This was improved compared to her preoperative exam. Again, the patient was very pleased with the outcome postoperatively. She will follow up with our office on an outpatient basis. Job ID: [id number]
[2018-10-25] MEDS ORDERED: Dexamethasone 1 MG TAB PO SCH (12:00)
== END 2018-10-24 18:10 | disposition home or self-care (01) | DRG 29 ==
LOC: SURG A 15:05
PROVIDERS: ADMIT Surgery; ATTEND Surgery
PROC: 00BX0ZZ Excision of Thoracic Spinal Cord, Open Approach (ICD-10-PCS; principal; 2018-10-18)
DX: C79.49 Secondary malignant neoplasm of other parts of nervous system (principal); F32.0 Major depressive disorder, single episode, mild; M48.04 Spinal stenosis, thoracic region; D63.1 Anemia in chronic kidney disease; N18.3 Chronic kidney disease, stage 3 (moderate); G62.9 Polyneuropathy, unspecified; G89.4 Chronic pain syndrome; G54.3 Thoracic root disorders, not elsewhere classified; Z85.53 Personal history of malignant neoplasm of renal pelvis; Z90.49 Acquired absence of other specified parts of digestive tract; Z98.84 Bariatric surgery status; Z79.899 Other long term (current) drug therapy
CPT/HCPCS: 36415; 70553; 71260; 72128; 72131; 72156; 74177; 76000; 80048; 83735; 85025; 85610; 85730; 88304; 88305; 88313; 88331; 88341; 88342; 93005; 93010; A9577; C9113; J0690; J1100; J1170; J2001; J2250; J2270; J2405; J2704; J3010; J3370; J3490; J8540; Q9966

== ENCOUNTER 2019-03-01 12:34 | Outpatient (CLI) | payer MEDICARE, MEDICAID ==
[~2019-03-01 12:34] MED LIST: Magnevist 469MG/ML 20 ML VIAL ONE
--- NOTE | 2019-03-01 15:43 | MRI ---
THORACIC SPINE MRI WITH AND WITHOUT CONTRAST: HISTORY: Follow-up exam. Spinal cord tumor removal 10/18/2018. COMPARISON: None. FINDINGS: Appropriate T1 marrow signal intensity of the thoracic vertebrae. Thoracic spine vertebral body heigh t is maintained. There is no fracture. No significant STIR hyperintensity to suggest vertebral body edema or ligamentous injury. Visualized mediastinum, lung parenchyma and solid organs have appropriate signal intensity. Postcontrast images do not demonstrate any abnormal enhancement of the thoracic vertebrae. There is postsurgical change with laminectomy defect starting at the T8-T9 disc space, extending infe riorly to the T11-T12 disc space. Postcontrast images demonstrate scar tissue along with a T2 hyperintense focus with peripheral enhanc ement from the T9-T10 level measuring 2.4 cm in the craniocaudal dimension. Axial images demonstrate this collection to measure 1.0 x 0.3 cm. There is some mass effect upon the dorsal thecal sac. Postoperative fluid collection is favored. Infected fluid collection cannot be entirely excluded. Conus medullaris terminates at the mid L1 level. The thoracic cord appears to have normal size and si gnal intensity. No cord expansion. No cord malacia. Postcontrast images do not demonstrate any abnormal enhancement of the thoracic cord. Throughout the thoracic spine, the neural foramina are patent. There is no significant central canal stenosis. IMPRESSION: Postsurgical changes involving the mid to distal thoracic spine as described above. There is no evide nce of cord expansion or cord malacia. No definite pathologic enhancement of the thoracic cord. Well-circumscribed small peripherally enhancing fluid collection the operative site is presumably pos toperative. In the appropriate clinical setting, an infected fluid collection cannot be entirely excluded. Clinical correlation is essential. CODE T Transcribed Date/Time: 03/01/2019 3:56 PM
== END 2019-03-01 12:35 | disposition home or self-care (01) ==
LOC: BICMRI 12:34
PROVIDERS: ATTEND Surgery
DX: M54.14 Radiculopathy, thoracic region (principal); C64.9 Malignant neoplasm of unspecified kidney, except renal pelvis
CPT/HCPCS: 72157; 82565